=== PATIENT | male | born 1945 | race Caucasian/White ===

== ENCOUNTER 2019-07-05 14:25 | Emergency (ER) | payer MEDICARE, BC ==
[~2019-07-05] VITALS: Ht 170.2 cm; Wt 80.0 kg
--- NOTE | 2019-07-05 14:32 | NUR ---
PATIENT BROUGHT IN BY [facility] FROM URGENT CARE AFTER EXPERIENCING ANGIOEDEMA TAKING DOXYCYCLIINE ABX. PATIENT STATES HE TOOK HIS LAST DOSE TODAY (7 DAYS) FIRST TIME SWELLING OCCURED. THE PATIENT IS ALERT, ORIENTED, WARM AND DRY.
[2019-07-05] MEDS ORDERED: OMEP10CA5 PO (14:41)
[2019-07-05] MEDS ORDERED: INSU100C5 SQ-INSULIN (14:41)
[2019-07-05] MEDS ORDERED: LINA5TAB PO (14:41)
[2019-07-05] MEDS ORDERED: SIMV5TAB14 PO (14:41)
[2019-07-05] MEDS ORDERED: SIMV10TA3 PO (14:41)
[2019-07-05] MEDS ORDERED: GLIM1TAB3 PO (14:41)
[2019-07-05] MEDS ORDERED: LISI1TAB23 PO (14:41)
--- NOTE | 2019-07-05 14:53 | NUR ---
GERALDINE GRAJEDA AT BEDSIDE FOR EVALUATION
[2019-07-05 15:05] LABS: BASOPHILS # (AUTO) 0.04 x10^3/uL (0-0.1); BASOPHILS % (AUTO) 0 % (0-1); EOSINOPHILS # (AUTO) 0.12 x10^3/uL (0-0.4); EOSINOPHILS % (AUTO) 1 % (1-7); LYMPHOCYTES # (AUTO) 0.67 x10^3/uL (1-3.4); LYMPHOCYTES % (AUTO) 5 % (22-44); MD NO; MEAN CORPUSCULAR HEMOGLOBIN 32.1 pg (27.5-34.5); MEAN CORPUSCULAR HGB CONC 32.6 g/dL (33.2-36.2); MEAN CORPUSCULAR VOLUME 98.5 fL (81-97); MEAN PLATELET VOLUME 8.9 fL (7.4-10.4); MONOCYTES # (AUTO) 0.38 x10^3/uL (0.2-0.8); MONOCYTES % (AUTO) 3 % (2-9); NEUTROPHILS # (AUTO) 11.54 x10^3/uL (1.8-6.8); NEUTROPHILS % (AUTO) 91 % (42-75); PLATELET COUNT 215 x10^3/uL (130-400); RED BLOOD COUNT 4.68 x10^6/uL (4.38-5.82); RED CELL DISTRIBUTION WIDTH 14.4 % (9.4-14.8)
[2019-07-05 15:15] LABS: ALBUMIN 3.7 g/dL (3.4-5.0); ANION GAP 9 mmol/L (5-15); CHLORIDE 109 mmol/L (98-107)
[2019-07-05 15:16] LABS: CREATININE 1.78 mg/dL (0.7-1.3)
--- NOTE | 2019-07-05 15:34 | NUR ---
PT RESTING IN BED, NO ANGIOEDEMA AT THIS TIME.
--- NOTE | 2019-07-05 16:01 | NUR ---
RECEIVED REPORT FROM [facility]. PT UPRIGHT ON GURNEY AWAKE & COMFORTABLE, REPORTS "ONLY VERY LITTLE SWELLING ON TONGUR BUT MUCH BETTER", NAD, RESPONDS APPROP TO STAFF, COMFORT MEASURES PROVIDED, CALL LIGHT WITHIN REACH.
[2019-07-05 16:51] VITALS: BP 122/68
--- NOTE | 2019-07-05 16:52 | NUR ---
Patient given taxi voucher, discharge instructions and Rx, they have confirmed that they understand the instructions. Patient ambulatory with steady gait.
--- NOTE | 2019-07-05 16:52 | NUR ---
Pt verb. understanding of no longer taking lisinopril. New Rx, d/c papers & cab voucher provided as pt left wallet in car in parking lot of . Airway patent, states tongue swelling decreased. Amb steady gait to d/c desk.
== END 2019-07-05 16:53 | disposition home or self-care (01) ==
LOC: ED 16:45
DX: T78.3XXA Angioneurotic edema, initial encounter (principal); I10 Essential (primary) hypertension; E11.9 Type 2 diabetes mellitus without complications
CPT/HCPCS: 36415; 80048; 82040; 85025; 99283